=== PATIENT | female | born 1985 | race Two or more races ===

== ENCOUNTER 2019-01-16 13:00 | Emergency (ER) | payer OTHER ==
[~2019-01-16] VITALS: Ht 162.6 cm; Wt 47.6 kg
== END 2019-01-16 18:50 | disposition home or self-care (01) ==
LOC: ER 13:00
DX: O20.0 Threatened abortion (principal)

== ENCOUNTER 2019-01-26 06:10 | Day surgery (SDC) | payer OTHER | END 2019-01-26 11:15 | disposition home or self-care (01) | LOC: CIR.AMB 06:10 | DX: O02.1 Missed abortion (principal); Z3A.01 Less than 8 weeks gestation of pregnancy ==

== ENCOUNTER 2020-02-14 00:18 | Outpatient (CLI) | payer OTHER ==
[2020-02-14] MEDS ORDERED: PRENATAL TABLE1 EAC3 PO (00:28)
[2020-02-14] MEDS ORDERED: IRON325 MG PO (00:57)
[2020-02-14] MEDS ORDERED: ECOTRIN81 MG PO (00:57)
== END 2020-02-14 13:43 | disposition home or self-care (01) ==
LOC: OBS/DEL 00:18
PROVIDERS: ATTEND Obstetrics & Gynecology
DX: O26.893 Other specified pregnancy related conditions, third trimester (principal); Z04.3 Encounter for examination and observation following other accident; W19.XXXA Unspecified fall, initial encounter; Y93.89 Activity, other specified; Y92.89 Other specified places as the place of occurrence of the external cause; Y99.8 Other external cause status

== ENCOUNTER 2020-04-04 04:17 | Inpatient (IN) | payer OTHER ==
[~2020-04-04] VITALS: Ht 160 cm; Wt 62.1 kg
[~2020-04-04 04:17] MED LIST: ECOTRIN81 MG PO; IRON325 MG PO; PRENATAL TABLE1 EAC3 PO
[2020-04-04] MEDS ORDERED: LEVOTHYROXINE25 MCG PO (04:54)
== END 2020-04-06 15:47 | disposition home or self-care (01) | DRG 807 ==
LOC: LDR 04:17 → SURG-SUITE 17:02
PROVIDERS: ADMIT Obstetrics & Gynecology; ATTEND Obstetrics & Gynecology
PROC: 10E0XZZ Delivery of Products of Conception, External Approach (ICD-10-PCS; principal; 2020-04-04)
PROC: 0KQM0ZZ Repair Perineum Muscle, Open Approach (ICD-10-PCS; 2020-04-04)
PROC: 10907ZC Drainage of Amniotic Fluid, Therapeutic from Products of Conception, Via Natural or Artificial Opening (ICD-10-PCS; 2020-04-04)
PROC: 4A1HXFZ Monitoring of Products of Conception, Cardiac Rhythm, External Approach (ICD-10-PCS; 2020-04-04)
DX: O70.1 Second degree perineal laceration during delivery (principal); Z37.0 Single live birth; Z3A.39 39 weeks gestation of pregnancy; Z20.828 Contact with and (suspected) exposure to other viral communicable diseases